=== PATIENT | female | born 1975 | race Caucasian/White ===

== ENCOUNTER 2018-10-13 16:49 | Emergency (ER) | payer BC, MEDICAID ==
[~2018-10-13] VITALS: Ht 165.1 cm; Wt 76.2 kg
[~2018-10-13 16:49] MED LIST: IBUP-1544 PO; PERCOCET PO
[2018-10-13 17:03] VITALS: Ht 165.1 cm; Wt 76.2 kg
--- NOTE | 2018-10-13 18:28 | ERD ---
ER Documentation Chief Complaint Chief Complaint facial numbness, unable to explain how head feels, no neuro deficit HPI The patient is a 43-year-old female, presenting to the ER because of right facial numbness, denies similar symptoms previously, denies headache, weakness, dysarthria, dysphonia, neck pain, chest pain, dyspnea, abdominal pain, vomiting. She does not smoke nor drink, has some stress with her children. Past medical history: None Past surgical history: 3 ROS All systems reviewed and are negative except as per history of present illness. Medications Home Meds Active Scripts Oxycodone Hcl/Acetaminophen (Percocet) 1 Tab Tab, 2 TAB PO Q4H PRN for PAIN LEVEL 6-10, #30 TAB 0 Refills Prov:LEE ATBARES MD 02/15/15 Ibuprofen* (Ibuprofen*) 800 Mg Tab, 800 MG PO Q8, #20 0 Refills Prov:LEE TABARES MD 02/15/15 Allergies Allergies: Coded Allergies: No Known Allergies (Verified Allergy, Mild, 02/14/15) Physical Exam Vitals Vital Signs Date Temp Pulse Resp B/P (MAP) Pulse Ox O2 O2 Flow FiO2 Time Delivery Rate 10/13/18 71 20 113/77 99 Room Air 22:10 (89) 10/13/18 97.7 75 18 114/82 100 Room Air 21:06 (93) 10/13/18 97.7 74 18 127/79 100 17:03 (95) Physical Exam Const: No acute distress. Head: Atraumatic. Eyes: Normal Conjunctiva. ENT: Normal External Ears, Nose and Mouth. Neck: Full range of motion. No meningismus. Resp: Clear to auscultation bilaterally. Cardio: Regular rate and rhythm. Abd: Soft, non distended, normal bowel sounds, non tender. Skin: No petechiae or rashes. Back: No midline or flank tenderness. Ext: No cyanosis, or edema. Neur: Awake and alert. No focal deficit Psych: Normal Mood and Affect. Result Diagram: 10/13/18 1840 10/13/18 1840 Results 24 hrs Laboratory Tests Test 10/13/18 18:40 10/13/18 18:54 10/13/18 18:59 10/13/18 19:38 White Blood Count 9.9 10^3/ul Red Blood Count 4.97 10^6/ul Hemoglobin 14.0 g/dl Hematocrit 42.0 % Mean Corpuscular 84.5 fl Volume Mean Corpuscular 28.2 pg Hemoglobin Mean Corpuscular 33.3 g/dl Hemoglobin Concent Red Cell 12.3 % Distribution Width Platelet Count 263 10^3/UL Mean Platelet 10.2 fl Volume Immature 1.400 % Granulocytes % Neutrophils % 55.4 % Lymphocytes % 26.9 % Monocytes % 6.4 % Eosinophils % 9.6 % Basophils % 0.3 % Nucleated Red Blood 0.0 /100WBC Cells % Immature 0.140 10^3/ul Granulocytes # Neutrophils # 5.5 10^3/ul Lymphocytes # 2.7 10^3/ul Monocytes # 0.6 10^3/ul Eosinophils # 1.0 10^3/ul Basophils # 0.0 10^3/ul Nucleated Red Blood 0.0 10^3/ul Cells # Sodium Level 136 mmol/L Potassium Level 4.0 mmol/L Chloride Level 102 mmol/L Carbon Dioxide 26 mmol/L Level Anion Gap 8 Blood Urea Nitrogen 13 mg/dl Creatinine 0.61 mg/dl Est Glomerular > 60 mL/min Filtrat Rate mL/min Glucose Level 286 mg/dl Calcium Level 9.2 mg/dl Bedside Urine pH 5.5 (LAB) Bedside Urine 1+ Protein (LAB) Bedside Urine 0.50% Glucose (UA) Bedside Urine Negative Ketones (LAB) Bedside Urine Blood Trace-lysed Bedside Urine Negative Nitrite (LAB) Bedside Urine Negative Leukocyte Esterase (L POC Beta HCG, NEGATIVE Qualitative Bedside Glucose 264 mg/dL Procedures/[place] [id number] Radiology Main Line: [phone] DIAGNOSTIC IMAGING REPORT Patient: KASSIE HERZOG : 1975 Age: 43 Sex: F [id number] [id number] [id number] DOS: 10/13/18 1856 Ordering MD: ROMA JAIN MD Location: E/R Room/Bed: PROCEDURE: CT Brain without contrast CLINICAL INDICATION: Headaches. Dizziness. TECHNIQUE: A CT of the brain was performed on multidetector high-resolution CT scanner utilizing axial sections from the skull base through the vertex without contrast. The scan was reviewed in soft tissue brain and high frequency resolution bone algorithm windows. Images were reviewed on a high-resolution PACS workstation. DICOM images are available. CTDI = 38.70 mGy and the DLP = 634.23 mGy-cm. One or more of the following dose reduction techniques were used: - Automated exposure control. - Adjustment of the mA and/or kV according to patient size. Use of iterative reconstruction technique. COMPARISON: None available FINDINGS: The ventricles and sulci are symmetric and normal in size and morphology. There is no evidence of intracranial hemorrhage, mass effect, edema or midline shift. No abnormal intra-axial or extra-axial fluid collections are seen. The density of the brain is normal and the garcia/white matter differentiation is well preserved. Brainstem and posterior fossa structures are equally unremarkable. The osseous structures and visualized paranasal sinuses are unremarkable. The surrounding soft tissue scalp and bony calvarium are intact and normal. IMPRESSION: 1. Unremarkable CT brain. RPTAT: HMJB .Geoffrey Mensah MD MD Date Time Electronically viewed and signed by .Geoffrey Mensah MD, MD on 10/13/2018 20:15 .B/ CC: ROMA JAIN MD [id number] MEDICAL MAKING DECISION: The patient is a 43-year-old female, presenting with acute paresthesia, acute hyperglycemia, acute distress. She is stable for outpatient follow-up The differential diagnoses considered include but are not limited to Valdivia palsy, headache, new onset diabetes Departure Diagnosis: Primary Impression: Paresthesia Additional Impression: Hyperglycemia Condition: Good Comments I discussed the findings with the patient. I advised the patient to follow-up with the primary physician in about 2-3 days to rule her out for diabetes mellitus, new onset, sooner if needed and return if any concern. Disclaimer: Inadvertent spelling and grammatical errors are likely due to EHR/dictation software use and do not reflect on the overall quality of patient care. Also, please note that the electronic time recorded on this note does not necessarily reflect the actual time of the patient encounter. ROMA JAIN MD Oct 13, 2018 18:28
[2018-10-13 22:10] VITALS: BP 113/77; PULSE 71; RESP 20
== END 2018-10-13 22:35 | disposition home or self-care (01) ==
LOC: E/R 16:49
DX: R20.2 Paresthesia of skin (principal); R73.9 Hyperglycemia, unspecified
CPT/HCPCS: 70450; 80048; 81003; 81025; 82962; 85025